=== PATIENT | female | born 1975 | race Caucasian/White ===

== ENCOUNTER 2020-09-06 06:12 | Emergency (ER) | payer MEDICAID, SELFPAY ==
--- NOTE | ~2020-09-06 | XR_ITS ---
EXAMINATION: XR foot LT min 3V DATE: 09/06/2020 06:31 INDICATION: Left foot pain. TECHNIQUE: 4 views of left foot were obtained. COMPARISON: Left foot radiographs 04/18/2007 FINDINGS: There is an avulsion fracture of medial base of second proximal phalanx. The avulsed fractu re fragment demonstrates 3 mm distraction and rotation. There is a nondisplaced avulsion fracture of medial base of third proximal phalanx. There is a nondisplaced oblique fracture of lateral base of fi rst distal phalanx. Joint spaces are normal. There are enthesophytes at the posterior and plantar asp ects of calcaneal tuberosity. IMPRESSION: 1. Fractures of the bases of the first distal phalanx and second and third proximal phalanges. Reviewed, dictated and finalized at location A. /PARAMEDIC IMPRESSION: 1. Fractures of the bases of the first distal phalanx and second and third prox imal phalanges.
[2020-09-06 06:14] VITALS: BP 124/74; PULSE 86; RESP 12; TEMP 36.3; O2SAT 98
--- NOTE | 2020-09-06 06:44 | ED.FALL ---
HPI - Fall General Chief Complaint: Fall Stated Complaint: Fall Time Seen by Provider: 09/06/20 06:22 History of Present Illness HPI Narrative: Patient is a 44-year-old female who presents ER with left foot pain. She slipped walking down some steps and her fingers got forcibly tucked under her foot. Sudden onset pain and pop. Only able to walk on the outside of her left foot. No numbness or tingling. Throbbing pain. She did not strike her head or lose consciousness. She did strike her left low back for there is some bruising. Related Data Allergies Allergy/AdvReac Type Severity Reaction Status Date / Time codeine AdvReac Intermediate VOMITING Verified 09/06/20 06:23 Review of Systems Musculoskeletal: Musculoskeletal: Reports back pain, Reports arthralgias, Reports joint swelling and Denies muscle cramps Integumentary/Breasts: Skin/Breast: Denies erythema and Denies rash Comments: Foot bruising Neurologic: Denies syncope, Denies focal weakness and Denies numbness PMFSH Past Medical History Medical History (Updated 09/06/20 @ 06:49 by Brandin Pedroza MD) Diabetes Surgical History Surgical History (Updated 09/06/20 @ 06:46 by Brandin Pedroza MD) No pertinent past surgical history Social History Social History (Updated 09/06/20 @ 06:46 by Brandin Pedroza MD) Smoking status: Never smoker Gender identity (if verbalized by the patient): Female Exam Narrative: Exam Narrative: GENERAL: Well-appearing, well-nourished, and in no acute distress. HEAD: Normocephalic, atraumatic. EXTREMITIES: Focused exam left foot reveals tenderness over the great toe and at the MCP of #2 and 3 digits. Sensation intact. Normal dorsalis pedis pulse. Back: Left paraspinal bruise near the posterior superior iliac spine. No midline tenderness of the lumbar region. SKIN: Warm, dry, no rash. NEURO: No focal deficits. Alert and oriented x3. PSYCH: Normal mood and affect. Course Course Emergency Course: Patient informed of results. Discharge home. Patient in postop shoe. Vital Signs Vital signs: Vital Signs Temperature 97.4 F L 09/06/20 06:14 Pulse Rate 86 09/06/20 06:14 Respiratory Rate 12 09/06/20 06:14 Blood Pressure 124/74 09/06/20 06:14 Pulse Oximetry 98 09/06/20 06:14 Temperature 97.4 F L 09/06/20 06:14 Pulse Rate 86 09/06/20 06:14 Respiratory Rate 12 09/06/20 06:14 Blood Pressure 124/74 09/06/20 06:14 Pulse Oximetry 98 09/06/20 06:14 Procedures Orthopedic Splinting/Casting Injury #1: Splinting/Casting Date: 09/06/20 Splinting/Casting Time: 06:47 Side: left Lower Extremity Immobilizer: post-op shoe Pre-Procedure Neuro Vascular Exam: normal Post-Procedure Neuro Vascular Exam: normal MDM - Fall Imaging Data My impression: X-ray left foot: Fracture of the distal phalanx of the great toe, fractures of the proximal aspect of the proximal phalanx of digits 2 and 3. Discharge Plan Discharge Clinical Impression: Fracture of toe, closed, Fracture of great toe Patient Disposition: Home, Self-Care Condition: Stable Instructions: Toe Fracture (ED) Additional Instructions: Continue with your postop shoe. Follow-up with orthopedic surgery for further treatment evaluation. You have 3 broken toes. It will take time for these to heal. Take Gerlaw as needed for pain. Return the ER if you suffer additional injury, you have a cold/blue foot, you have other concerns. Prescriptions: New hydrocodone-acetaminophen 5-325 mg tablet 1 tablet PO Q6H PRN (Reason: pain) Qty: 20 RF: 0 Follow-up/Referrals: PHYSICIAN,WOOL BRUSHER [Primary Care Provider] - Jose Lin MD [Physician] - 1 Week
[2020-09-06 06:56] VITALS: BP 127/82; PULSE 81; RESP 16; TEMP 36.7; O2SAT 100
== END 2020-09-06 06:59 | disposition home or self-care (01) ==
LOC: ANHED 06:58
PROVIDERS: Emergency Provider Emergency Medicine
DX: S92.425A Nondisplaced fracture of distal phalanx of left great toe, initial encounter for closed fracture (principal); S92.512A Displaced fracture of proximal phalanx of left lesser toe(s), initial encounter for closed fracture; S92.515A Nondisplaced fracture of proximal phalanx of left lesser toe(s), initial encounter for closed fracture; W10.9XXA Fall (on) (from) unspecified stairs and steps, initial encounter
CPT/HCPCS: 73630; 99284